=== PATIENT | male | born 1990 | race Hispanic/Latino ===

== ENCOUNTER 2020-07-25 07:14 | Emergency (ER) | payer SELFPAY | END 2020-07-25 07:51 | disposition home or self-care (01) | LOC: ERS 07:14 | DX: R09.81 Nasal congestion (principal); Z86.16 Personal history of COVID-19 | CPT/HCPCS: 99283 ==

== ENCOUNTER 2021-02-19 12:47 | Emergency (ER) | payer SELFPAY ==
[2021-02-19] MEDS ORDERED: Ibuprofen 200 MG TAB ONE (14:04)
[2021-02-20 00:51] LABS: SARS-CoV-2 PCR by NAA DETECTED (NotDetected)
== END 2021-02-19 14:19 | disposition home or self-care (01) ==
LOC: ERS 12:47
DX: U07.1 COVID-19 (principal)
CPT/HCPCS: 99283; U0003; U0005